=== PATIENT | female | born 1950 | race African-American/Black ===

== ENCOUNTER 2021-08-01 12:29 | Inpatient (IN) | payer MEDICARE ==
[2021-08-01] MEDS ORDERED: Ondansetron ODT 4 MG TAB PO PRN (14:25)
[2021-08-01] MEDS ORDERED: Nitroglycerin 0.4 MG TAB (25 Tab Bottle) SL PRN (14:25)
[2021-08-01] MEDS ORDERED: Ondansetron PF 4 MG/2 ML Vial IVP PRN (14:25)
[2021-08-01] MEDS ORDERED: Acetaminophen 650 MG Suppository PR PRN (14:25)
[2021-08-01] MEDS ORDERED: Acetaminophen 325 MG TAB PO PRN (14:25)
[2021-08-01 14:29] VITALS: BMI 25.0
[2021-08-01] MEDS ORDERED: Insulin Regular 300 UNITS/3 ML VIAL SC PRN ×2 (15:08)
[2021-08-01] MEDS ORDERED: Dextrose 5% in Water 1,000 ML IV PRN (15:08)
[2021-08-01] MEDS ORDERED: Dextrose 50% Abboject 50 ML SYRINGE SLOW IVP PRN (15:08)
[2021-08-02] MEDS ORDERED: Melatonin 3 MG TAB PO SCH (01:30)
[2021-08-02 04:33] LABS: #Basophils 0.1 10x3/uL (0.0-0.2); #Eosinphils 0.3 10x3/uL (0.0-0.5); #Monocytes 0.6 10x3/uL (0.0-1.1); #Neutrophils 2.3 10x3/uL (1.5-8.4); %Basophils 0.9 % (0.0-2.0); %Eosinophils 4.2 % (0.0-6.0); %Lymphocytes 51.1 % (18.0-47.0); %Monocytes 8.8 % (0.0-10.0); %Neutrophils 34.7 % (40.0-75.0); Hemoglobin 10.8 g/dL (12.0-15.5); Mean Corpuscular HGB CONC 34.1 g/dL (32.0-36.0); Mean Corpuscular Hemoglobin 30.7 pg (27.0-33.0); Mean Corpuscular Volume 90.1 fl (81.6-98.3); Platelet Count 252 10x3/uL (150-450); RBC Distribution Width 13.3 % (11.5-14.5); Red Blood Cell (RBC) Count 3.52 10x6/uL (3.90-5.03); White Blood Cell (WBC) Count 6.7 10x3/uL (3.5-10.5)
[2021-08-02 04:45] LABS: Anion Gap 13 mmol/L (10-20); BUN (Urea Nitrogen) 20 mg/dL (9.8-20.1); Calc. Creatinine Clearance 63 mL/min (70-130); Calcium 9.4 mg/dL (7.8-10.44); Carbon Dioxide 24 mmol/L (23-31); Cardiac Risk 3.9 (Less than 4.5); Chloride 107 mmol/L (98-107); Cholesterol 166 mg/dl (< 200 Desired); Glucose 104 mg/dL (83-110); HDL Cholesterol 43 mg/dL (>60 Neg Risk); LDL Cholesterol, Calculated 103 mg/dL; Sodium 140 mmol/L (136-145); Triglycerides 98 mg/dL (Less than 150)
[2021-08-02 05:33] LABS: Band 2 % (5-11); Lymphocytes 51 % (21-51); Monocytes 10 % (0-10)
[2021-08-02 05:34] LABS: Neutrophil 37 % (42-75); Platelet Morphology Comment Appears Adequate
[2021-08-02 05:35] LABS: RBC Morphology Normal
[2021-08-02 05:40] LABS: Reflex for Review?? YES
[2021-08-02] MEDS: NIFEdipine XL 30 MG TAB PO SCH (08:22)
[2021-08-02] MEDS: Atorvastatin Calcium 40 MG TAB PO SCH (08:22)
[2021-08-02] MEDS: Glimepiride 4 MG TAB PO SCH (08:22)
[2021-08-02] MEDS: Aspirin Chewable 81 MG TAB PO SCH (08:22)
[2021-08-02] MEDS: Clopidogrel Bisulfate 75 MG TAB PO SCH (08:22)
[2021-08-02] MEDS ORDERED: Metoprolol Tartrate 25 MG TAB PO SCH (15:30)
[2021-08-02] MEDS: Metoprolol Tartrate 25 MG TAB PO SCH (21:24)
[2021-08-02] MEDS: Enoxaparin Sodium 60 MG/0.6 ML SYRINGE SC SCH (21:27)
[2021-08-02] MEDS: Melatonin 3 MG TAB PO PRN (22:49)
[2021-08-03 04:04] LABS: #Basophils 0.1 10x3/uL (0.0-0.2); #Eosinphils 0.3 10x3/uL (0.0-0.5); #Monocytes 0.5 10x3/uL (0.0-1.1); #Neutrophils 2.7 10x3/uL (1.5-8.4); %Eosinophils 4.1 % (0.0-6.0); %Lymphocytes 47.3 % (18.0-47.0); %Monocytes 7.5 % (0.0-10.0); Hemoglobin 10.9 g/dL (12.0-15.5); Mean Corpuscular HGB CONC 34.3 g/dL (32.0-36.0); Mean Corpuscular Hemoglobin 30.7 pg (27.0-33.0); Mean Corpuscular Volume 89.6 fl (81.6-98.3); Platelet Count 240 10x3/uL (150-450); RBC Distribution Width 13.2 % (11.5-14.5); Red Blood Cell (RBC) Count 3.55 10x6/uL (3.90-5.03); White Blood Cell (WBC) Count 6.8 10x3/uL (3.5-10.5)
[2021-08-03 04:28] LABS: Anion Gap 10 mmol/L (10-20); BUN (Urea Nitrogen) 19 mg/dL (9.8-20.1); Calc. Creatinine Clearance 67 mL/min (70-130); Calcium 9.1 mg/dL (7.8-10.44); Carbon Dioxide 27 mmol/L (23-31); Chloride 106 mmol/L (98-107); Glucose 176 mg/dL (83-110); Potassium 3.8 mmol/L (3.5-5.1); Sodium 139 mmol/L (136-145)
[2021-08-03] MEDS: Atorvastatin Calcium 40 MG TAB PO SCH (08:24)
[2021-08-03] MEDS: NIFEdipine XL 30 MG TAB PO SCH (08:24)
[2021-08-03] MEDS: Metoprolol Tartrate 25 MG TAB PO SCH ×2 (08:24→20:51)
[2021-08-03] MEDS: Glimepiride 4 MG TAB PO SCH (08:25)
[2021-08-03] MEDS: Clopidogrel Bisulfate 75 MG TAB PO SCH (08:25)
[2021-08-03] MEDS: Enoxaparin Sodium 60 MG/0.6 ML SYRINGE SC SCH ×3 (08:25→23:00)
[2021-08-03] MEDS: Aspirin Chewable 81 MG TAB PO SCH (08:25)
[2021-08-03] MEDS ORDERED: Communication Order-Pharmacy FS SCH (17:45)
[2021-08-03] MEDS ORDERED: Diazepam 5 MG TAB PO SCH (17:45)
[2021-08-03] MEDS: Melatonin 3 MG TAB PO PRN (22:47)
[2021-08-04 04:08] LABS: #Basophils 0.1 10x3/uL (0.0-0.2); #Eosinphils 0.3 10x3/uL (0.0-0.5); #Monocytes 0.6 10x3/uL (0.0-1.1); #Neutrophils 4.4 10x3/uL (1.5-8.4); %Basophils 0.9 % (0.0-2.0); %Eosinophils 3.4 % (0.0-6.0); %Lymphocytes 36.3 % (18.0-47.0); %Monocytes 7.2 % (0.0-10.0); %Neutrophils 51.8 % (40.0-75.0); Hemoglobin 11.1 g/dL (12.0-15.5); Mean Corpuscular HGB CONC 34.7 g/dL (32.0-36.0); Mean Corpuscular Hemoglobin 30.8 pg (27.0-33.0); Mean Corpuscular Volume 88.9 fl (81.6-98.3); Platelet Count 247 10x3/uL (150-450); White Blood Cell (WBC) Count 8.6 10x3/uL (3.5-10.5)
[2021-08-04 04:28] LABS: Anion Gap 11 mmol/L (10-20); BUN (Urea Nitrogen) 18 mg/dL (9.8-20.1); Calc. Creatinine Clearance 70 mL/min (70-130); Calcium 9.6 mg/dL (7.8-10.44); Carbon Dioxide 26 mmol/L (23-31); Chloride 105 mmol/L (98-107); Glucose 119 mg/dL (83-110); Sodium 138 mmol/L (136-145)
[2021-08-04] MEDS: Metoprolol Tartrate 25 MG TAB PO SCH ×2 (06:14→21:02)
[2021-08-04] MEDS: NIFEdipine XL 30 MG TAB PO SCH (06:15)
[2021-08-04] MEDS: Aspirin Chewable 81 MG TAB PO SCH (06:16)
[2021-08-04] MEDS ORDERED: Nitroglycerin 50 MG/250 ML BOT 0 ML ONE (11:36)
[2021-08-04] MEDS ORDERED: Heparin 10,000 UNITS/ 10 ML VIAL ONE (11:36)
[2021-08-04] MEDS ORDERED: Adenosine 6 MG/2 ML VIAL ONE (11:37)
[2021-08-04] MEDS ORDERED: Sodium Chloride 0.9% 1,000 ML ONE (11:37)
[2021-08-04] MEDS ORDERED: Lidocaine 1% (PF) 30 ML VIAL ONE (11:39)
[2021-08-04] MEDS ORDERED: Fentanyl 100 MCG/2 ML VIAL ONE (11:52)
[2021-08-04] MEDS ORDERED: Midazolam HCl 2 mg/2 ml Vial ONE (11:53)
[2021-08-04] MEDS: Atorvastatin Calcium 40 MG TAB PO SCH (15:31)
[2021-08-04] MEDS: Clopidogrel Bisulfate 75 MG TAB PO SCH (15:32)
[2021-08-04] MEDS: Melatonin 3 MG TAB PO PRN (21:13)
[2021-08-05 04:37] LABS: #Basophils 0.1 10x3/uL (0.0-0.2); #Eosinphils 0.3 10x3/uL (0.0-0.5); #Monocytes 0.6 10x3/uL (0.0-1.1); %Basophils 0.7 % (0.0-2.0); %Eosinophils 3.6 % (0.0-6.0); %Lymphocytes 40.1 % (18.0-47.0); %Monocytes 7.1 % (0.0-10.0); %Neutrophils 48.3 % (40.0-75.0); Hemoglobin 11.1 g/dL (12.0-15.5); Mean Corpuscular HGB CONC 33.9 g/dL (32.0-36.0); Mean Corpuscular Hemoglobin 30.7 pg (27.0-33.0); Mean Corpuscular Volume 90.6 fl (81.6-98.3); Mean Platelet Volume 8.8 fl (7.4-10.4); Platelet Count 235 10x3/uL (150-450); RBC Distribution Width 12.9 % (11.5-14.5); Red Blood Cell (RBC) Count 3.61 10x6/uL (3.90-5.03); White Blood Cell (WBC) Count 8.3 10x3/uL (3.5-10.5)
[2021-08-05 04:51] LABS: Anion Gap 13 mmol/L (10-20); BUN (Urea Nitrogen) 13 mg/dL (9.8-20.1); Calc. Creatinine Clearance 66 mL/min (70-130); Calcium 9.2 mg/dL (7.8-10.44); Carbon Dioxide 26 mmol/L (23-31); Chloride 107 mmol/L (98-107); Glucose 93 mg/dL (83-110); Potassium 4.6 mmol/L (3.5-5.1); Sodium 141 mmol/L (136-145)
[2021-08-05] MEDS: Glimepiride 4 MG TAB PO SCH (08:06)
[2021-08-05] MEDS: Metoprolol Tartrate 25 MG TAB PO SCH (08:24)
[2021-08-05] MEDS: Clopidogrel Bisulfate 75 MG TAB PO SCH (08:25)
[2021-08-05] MEDS: Aspirin Chewable 81 MG TAB PO SCH (08:25)
[2021-08-05] MEDS: Atorvastatin Calcium 40 MG TAB PO SCH (08:25)
[2021-08-05] MEDS: NIFEdipine XL 30 MG TAB PO SCH (10:18)
[2021-08-05] MEDS ORDERED: Sodium Chloride 0.9% 500 ML IV SCH (13:30)
[2021-08-05 16:18] VITALS: BP 120/42; TEMP 98.2
[2021-08-05] MEDS ORDERED: Rosuvastatin 20 MG TAB PO SCH (21:00)
== END 2021-08-05 16:00 | disposition short-term general hospital (02) | DRG 287 ==
LOC: CSHTELE 13:42 → OBSVTOIN 08-02 15:34
PROVIDERS: ADMIT Family Medicine; ATTEND Family Medicine
PROC: 4A023N7 Measurement of Cardiac Sampling and Pressure, Left Heart, Percutaneous Approach (ICD-10-PCS; principal; 2021-08-04)
PROC: B2111ZZ Fluoroscopy of Multiple Coronary Arteries using Low Osmolar Contrast (ICD-10-PCS; 2021-08-04)
PROC: B2151ZZ Fluoroscopy of Left Heart using Low Osmolar Contrast (ICD-10-PCS; 2021-08-04)
DX: I25.110 Atherosclerotic heart disease of native coronary artery with unstable angina pectoris (principal); I50.30 Unspecified diastolic (congestive) heart failure; E78.5 Hyperlipidemia, unspecified; E11.9 Type 2 diabetes mellitus without complications; I11.0 Hypertensive heart disease with heart failure; Z86.73 Personal history of transient ischemic attack (TIA), and cerebral infarction without residual deficits; Z79.84 Long term (current) use of oral hypoglycemic drugs; Z79.02 Long term (current) use of antithrombotics/antiplatelets
CPT/HCPCS: 36415; 36416; 80048; 80061; 85025; 85060; 93005; 93010; 93306; 93459; 94760; 99152; 99153; C1760; C1776; G0378; J0153; J1644; J1650; J2001; J2250; J3010; J7050

== ENCOUNTER 2023-01-25 13:41 | Observation (INO) | payer MEDICARE ==
[2023-01-25 17:35] VITALS: BMI 23.7
[2023-01-25] MEDS ORDERED: Glucagon 1 MG/ML KIT IM PRN (19:13)
[2023-01-25] MEDS ORDERED: Acetaminophen 325 MG TAB PO PRN (19:13)
[2023-01-25] MEDS ORDERED: Ondansetron PF 4 MG/2 ML Vial IVP PRN (19:13)
[2023-01-25] MEDS ORDERED: Calcium Carbonate 500 MG ChewTAB PO PRN (19:13)
[2023-01-25] MEDS ORDERED: Zolpidem Tartrate 5 MG TAB PO PRN (19:13)
[2023-01-25] MEDS ORDERED: Dextrose 50% Abboject 50 ML SYRINGE SLOW IVP PRN (19:13)
[2023-01-25] MEDS ORDERED: Senokot S 8.6-50 MG TAB PO PRN (19:13)
[2023-01-25] MEDS ORDERED: Guaifenesin DM 100-10/5 ML UDCUP PO PRN (19:13)
[2023-01-25] MEDS ORDERED: Dextrose 5% in Water 1,000 ML IV PRN (19:13)
[2023-01-25] MEDS ORDERED: Nitroglycerin 0.4 MG TAB (25 Tab Bottle) SL PRN (19:16)
[2023-01-25] MEDS ORDERED: Amlodipine 5 MG TAB PO SCH (20:00)
[2023-01-25 20:10] LABS: Troponin I Less than 0.010 ng/mL (< 0.028)
[2023-01-25] MEDS ORDERED: Metoprolol Tartrate 25 MG TAB PO SCH (21:00)
[2023-01-26 04:25] LABS: Anion Gap 11 mmol/L (10-20); BUN (Urea Nitrogen) 14 mg/dL (9.8-20.1); Calc. Creatinine Clearance 55 mL/min (70-130); Carbon Dioxide 26 mmol/L (23-31); Chloride 108 mmol/L (98-107); Estimated GFR 68; Glucose 115 mg/dL (83-110); Potassium 4.1 mmol/L (3.5-5.1); Sodium 141 mmol/L (136-145)
[2023-01-26] MEDS ORDERED: Glimepiride 4 MG TAB PO SCH (08:00)
[2023-01-26] MEDS ORDERED: HumaLOG 300 UNITS/3 ML VIAL SC PRN (08:46)
[2023-01-26] MEDS ORDERED: Aspirin 81 mg Enteric Coated Tablet PO SCH (09:00)
[2023-01-26] MEDS ORDERED: Metoprolol Tartrate 25 MG TAB PO SCH (09:00)
[2023-01-26] MEDS ORDERED: Atorvastatin Calcium 40 MG TAB PO SCH (09:00)
[2023-01-26] MEDS ORDERED: Amlodipine 5 MG TAB PO SCH (09:00)
[2023-01-26 16:47] VITALS: BP 144/67; TEMP 97.6
== END 2023-01-26 16:00 | disposition home or self-care (01) ==
LOC: CSHTELE 16:32
PROVIDERS: ADMIT Internal Medicine; ATTEND Internal Medicine
DX: R00.2 Palpitations (principal); R06.09 Other forms of dyspnea; R07.9 Chest pain, unspecified; I16.0 Hypertensive urgency; I10 Essential (primary) hypertension; R42 Dizziness and giddiness; I25.10 Atherosclerotic heart disease of native coronary artery without angina pectoris; E78.5 Hyperlipidemia, unspecified; E11.9 Type 2 diabetes mellitus without complications; Z79.84 Long term (current) use of oral hypoglycemic drugs; Z79.899 Other long term (current) drug therapy; Z79.82 Long term (current) use of aspirin; Z86.73 Personal history of transient ischemic attack (TIA), and cerebral infarction without residual deficits; Z90.49 Acquired absence of other specified parts of digestive tract; Z95.1 Presence of aortocoronary bypass graft
CPT/HCPCS: 36415; 36416; 80048; 83735; 84443; 85379; J1650

== ENCOUNTER 2023-06-29 10:04 | Observation (INO) | payer MEDICARE ==
[~2023-06-29 10:04] MED LIST: Iopamidol 300 61% 100 ML VIAL FS ONE
[2023-06-29] MEDS ORDERED: Aspirin Chewable 81 MG TAB ONE (11:08)
[2023-06-29] MEDS ORDERED: Nitroglycerin 2% Ointment 1 INCH/1 GM Packet ONE (11:08)
[2023-06-29 11:36] LABS: ALT (SGPT) 29 U/L (8-55); AST (SGOT) 20 U/L (5-34); Albumin 4.4 g/dL (3.4-4.8); Alkaline Phosphatase 70 U/L (40-110); Anion Gap 10 mmol/L (10-20); BUN (Urea Nitrogen) 12 mg/dL (9.8-20.1); Calc. Creatinine Clearance 0 mL/min (70-130); Calcium 9.6 mg/dL (7.8-10.44); Carbon Dioxide 25 mmol/L (23-31); Chloride 106 mmol/L (98-107); Estimated GFR 66; Globulin 3.6 g/dL (2.4-3.5); Glucose 108 mg/dL (83-110); Magnesium 1.9 mg/dL (1.6-2.6); Potassium 4.4 mmol/L (3.5-5.1); Sodium 137 mmol/L (136-145)
[2023-06-29 11:40] LABS: Troponin I Less than 0.010 ng/mL (< 0.028)
[2023-06-29 11:49] LABS: #Basophils 0.1 10x3/uL (0.0-0.2); #Eosinphils 0.2 10x3/uL (0.0-0.5); #Monocytes 0.4 10x3/uL (0.0-1.1); #Neutrophils 4.6 10x3/uL (1.5-8.4); %Eosinophils 3.1 % (0.0-6.0); %Lymphocytes 31.4 % (18.0-47.0); %Monocytes 4.6 % (0.0-10.0); %Neutrophils 59.5 % (40.0-75.0); Hematocrit 38.7 % (34.9-44.5); Hemoglobin 13.7 g/dL (12.0-15.5); Mean Corpuscular HGB CONC 35.4 g/dL (32.0-36.0); Mean Corpuscular Hemoglobin 31.4 pg (27.0-33.0); Mean Corpuscular Volume 88.6 fl (81.6-98.3); Platelet Count 242 10x3/uL (150-450); RBC Distribution Width 12.6 % (11.5-14.5); Red Blood Cell (RBC) Count 4.37 10x6/uL (3.90-5.03); White Blood Cell (WBC) Count 7.8 10x3/uL (3.5-10.5)
[2023-06-29] MEDS ORDERED: Acetaminophen 325 MG TAB PO PRN (12:49)
[2023-06-29] MEDS ORDERED: Glucagon 1 MG/ML KIT IM PRN (12:54)
[2023-06-29] MEDS ORDERED: Dextrose 50% Abboject 50 ML SYRINGE SLOW IVP PRN (12:54)
[2023-06-29] MEDS ORDERED: Dextrose 5% in Water 1,000 ML IV PRN (12:54)
[2023-06-29] MEDS ORDERED: Insulin Regular 300 UNITS/3 ML VIAL SC PRN (12:54)
[2023-06-29] MEDS ORDERED: fentaNYL 50 mcg/mL 1 mL Vial ONE (13:51)
[2023-06-29] MEDS ORDERED: Heparin 10,000 UNITS/ 10 ML VIAL ONE (13:51)
[2023-06-29] MEDS ORDERED: Lidocaine 1% (PF) 30 ML VIAL ONE (13:51)
[2023-06-29] MEDS ORDERED: Nitroglycerin 50 MG/250 ML BOT 0 ML ONE (13:51)
[2023-06-29] MEDS ORDERED: Midazolam HCl 2 mg/2 ml Vial ONE (13:51)
[2023-06-29 18:30] VITALS: BMI 24.2
[2023-06-29] MEDS: Sodium Chloride 0.9% 1,000 ML IV SCH (18:37)
[2023-06-29] MEDS ORDERED: Famotidine 20 MG TAB PO SCH (21:00)
[2023-06-30 04:24] LABS: Cardiac Risk 4.9 (Less than 4.5)
[2023-06-30] MEDS: Sodium Chloride 0.9% 1,000 ML IV SCH ×2 (07:30→10:19)
[2023-06-30] MEDS ORDERED: Aspirin Chewable 81 MG TAB PO SCH (09:00)
[2023-06-30] MEDS ORDERED: Isosorbide Mononitrate 30 MG ER.TAB PO SCH (09:00)
[2023-06-30] MEDS ORDERED: Valsartan 80 MG TAB PO SCH (09:00)
[2023-06-30 16:17] VITALS: BP 123/63; TEMP 98.1
== END 2023-06-30 16:45 | disposition home or self-care (01) ==
LOC: CSHERS 10:04 → CSHERHOLD 12:47 → CSHTELE 13:39
PROVIDERS: ADMIT Internal Medicine; ATTEND Nurse Practitioner Acute Care
PROC: 4A023N7 Measurement of Cardiac Sampling and Pressure, Left Heart, Percutaneous Approach (ICD-10-PCS; principal; 2023-06-29)
PROC: B300ZZZ Plain Radiography of Thoracic Aorta (ICD-10-PCS; 2023-06-29)
PROC: B205YZZ Plain Radiography of Left Heart using Other Contrast (ICD-10-PCS; 2023-06-29)
DX: I25.110 Atherosclerotic heart disease of native coronary artery with unstable angina pectoris (principal); E11.9 Type 2 diabetes mellitus without complications; E78.5 Hyperlipidemia, unspecified; I10 Essential (primary) hypertension; Z95.1 Presence of aortocoronary bypass graft; Z90.49 Acquired absence of other specified parts of digestive tract; Z79.02 Long term (current) use of antithrombotics/antiplatelets; Z79.84 Long term (current) use of oral hypoglycemic drugs; Z79.82 Long term (current) use of aspirin; Z79.85 Long-term (current) use of injectable non-insulin antidiabetic drugs; Z86.73 Personal history of transient ischemic attack (TIA), and cerebral infarction without residual deficits; Z79.899 Other long term (current) drug therapy
CPT/HCPCS: 71045; 80053; 80061; 82962 ×2; 83735; 84484; 85025; 93005; 93306; 93459; 94760; C1760 ×2; C1769; G0378 ×3; 36415; 36416; 99152; 99153; J1644; J1815; J2001; J2250; J3010; J7050; Q9967

== ENCOUNTER 2023-07-23 14:18 | Inpatient (IN) | payer MEDICARE ==
[2023-07-23 15:58] LABS: #Basophils 0.1 10x3/uL (0.0-0.2); #Eosinphils 0.2 10x3/uL (0.0-0.5); #Monocytes 0.6 10x3/uL (0.0-1.1); #Neutrophils 5.8 10x3/uL (1.5-8.4); %Eosinophils 2.6 % (0.0-6.0); %Lymphocytes 20.7 % (18.0-47.0); %Monocytes 6.7 % (0.0-10.0); %Neutrophils 68.6 % (40.0-75.0); Hematocrit 36.4 % (34.9-44.5); Hemoglobin 12.2 g/dL (12.0-15.5); Mean Corpuscular HGB CONC 33.5 g/dL (32.0-36.0); Mean Corpuscular Volume 89.7 fl (81.6-98.3); Mean Platelet Volume 9.4 fl (7.4-10.4); Platelet Count 260 10x3/uL (150-450); RBC Distribution Width 12.9 % (11.5-14.5); Red Blood Cell (RBC) Count 4.06 10x6/uL (3.90-5.03); White Blood Cell (WBC) Count 8.4 10x3/uL (3.5-10.5)
[2023-07-23 16:04] LABS: ALT (SGPT) 22 U/L (8-55); AST (SGOT) 19 U/L (5-34); Alkaline Phosphatase 74 U/L (40-110); Anion Gap 10 mmol/L (10-20); BUN (Urea Nitrogen) 15 mg/dL (9.8-20.1); Bilirubin, Total 0.8 mg/dL (0.2-1.2); Calc. Creatinine Clearance 0 mL/min (70-130); Carbon Dioxide 25 mmol/L (23-31); Chloride 108 mmol/L (98-107); Estimated GFR 52; Globulin 2.8 g/dL (2.4-3.5); Glucose 155 mg/dL (83-110); Potassium 5.2 mmol/L (3.5-5.1); Protein, Total 6.8 g/dL (5.8-8.1); Sodium 138 mmol/L (136-145)
[2023-07-23 16:11] LABS: Troponin I Less than 0.010 ng/mL (< 0.028)
[2023-07-23] MEDS ORDERED: Dextrose 50% Abboject 50 ML SYRINGE SLOW IVP PRN (17:50)
[2023-07-23] MEDS ORDERED: Dextrose 5% in Water 1,000 ML IV PRN (17:50)
[2023-07-23] MEDS ORDERED: Glucagon 1 MG/ML KIT IM PRN (17:50)
[2023-07-23 18:45] LABS: Troponin I Less than 0.010 ng/mL (< 0.028)
[2023-07-23] MEDS: Metoprolol Tartrate 25 MG TAB PO SCH (20:58)
[2023-07-23] MEDS: Famotidine 20 MG TAB PO SCH (20:59)
[2023-07-23] MEDS: Acetaminophen 325 MG TAB PO PRN (20:59)
[2023-07-23] MEDS: Insulin Regular 300 UNITS/3 ML VIAL SC PRN (21:15)
[2023-07-23 21:36] LABS: Troponin I Less than 0.010 ng/mL (< 0.028)
[2023-07-23] MEDS: traZODone HCl 50 MG TAB PO SCH (22:03)
[2023-07-24 05:46] LABS: Anion Gap 8 mmol/L (10-20); BUN (Urea Nitrogen) 15 mg/dL (9.8-20.1); Calc. Creatinine Clearance 0 mL/min (70-130); Calcium 8.8 mg/dL (7.8-10.44); Carbon Dioxide 24 mmol/L (23-31); Chloride 112 mmol/L (98-107); Estimated GFR 69; Glucose 99 mg/dL (83-110); Potassium 4.3 mmol/L (3.5-5.1); Sodium 140 mmol/L (136-145)
[2023-07-24 05:50] VITALS: BMI 24.2
[2023-07-24 10:58] LABS: Magnesium 1.7 mg/dL (1.6-2.6)
[2023-07-24] MEDS: Ranolazine ER 500 MG TAB PO SCH ×2 (11:12→21:29)
[2023-07-24] MEDS: Aspirin Chewable 81 MG TAB PO SCH (11:12)
[2023-07-24] MEDS: Isosorbide Mononitrate 30 MG ER.TAB PO SCH (11:13)
[2023-07-24] MEDS: Clopidogrel Bisulfate 75 MG TAB PO SCH (11:16)
[2023-07-24 11:41] LABS: Hemoglobin A1c 6.5 % (4.0-6.0)
[2023-07-24] MEDS: Magnesium 2 GM/50 ML(in water) 2 GM in Premix 1 BAG IVPB SCH (14:25)
[2023-07-24] MEDS: traZODone HCl 50 MG TAB PO SCH (21:29)
[2023-07-25 06:05] LABS: Anion Gap 10 mmol/L (10-20); BUN (Urea Nitrogen) 16 mg/dL (9.8-20.1); Calc. Creatinine Clearance 48 mL/min (70-130); Calcium 8.6 mg/dL (7.8-10.44); Carbon Dioxide 24 mmol/L (23-31); Chloride 107 mmol/L (98-107); Estimated GFR 57; Glucose 138 mg/dL (83-110); Potassium 4.2 mmol/L (3.5-5.1); Sodium 137 mmol/L (136-145)
[2023-07-25] MEDS: Metoprolol Tartrate 25 MG TAB PO SCH (08:59)
[2023-07-25] MEDS ORDERED: Famotidine 20 MG TAB PO SCH (21:00)
[2023-07-25] MEDS: Ranolazine ER 500 MG TAB PO SCH (21:06)
[2023-07-26 04:59] LABS: #Basophils 0.1 10x3/uL (0.0-0.2); #Eosinphils 0.4 10x3/uL (0.0-0.5); #Monocytes 0.6 10x3/uL (0.0-1.1); #Neutrophils 3.1 10x3/uL (1.5-8.4); %Basophils 1.2 % (0.0-2.0); %Eosinophils 5.8 % (0.0-6.0); %Lymphocytes 35.6 % (18.0-47.0); %Monocytes 8.6 % (0.0-10.0); %Neutrophils 48.6 % (40.0-75.0); Hematocrit 33.2 % (34.9-44.5); Hemoglobin 11.7 g/dL (12.0-15.5); Mean Corpuscular HGB CONC 35.2 g/dL (32.0-36.0); Mean Corpuscular Volume 88.1 fl (81.6-98.3); Mean Platelet Volume 9.9 fl (7.4-10.4); Platelet Count 239 10x3/uL (150-450); RBC Distribution Width 12.6 % (11.5-14.5); Red Blood Cell (RBC) Count 3.77 10x6/uL (3.90-5.03); White Blood Cell (WBC) Count 6.4 10x3/uL (3.5-10.5)
[2023-07-26 05:05] LABS: Anion Gap 11 mmol/L (10-20); BUN (Urea Nitrogen) 16 mg/dL (9.8-20.1); Calc. Creatinine Clearance 46 mL/min (70-130); Calcium 8.8 mg/dL (7.8-10.44); Carbon Dioxide 22 mmol/L (23-31); Chloride 108 mmol/L (98-107); Estimated GFR 54; Glucose 123 mg/dL (83-110); Potassium 4.2 mmol/L (3.5-5.1); Sodium 137 mmol/L (136-145)
[2023-07-27] MEDS: Ondansetron PF 4 MG/2 ML Vial IVP PRN (08:33)
[2023-07-27] MEDS: Ondansetron ODT 4 MG TAB PO SCH (19:40)
[2023-07-27 20:11] VITALS: BP 112/51; TEMP 97.6
[2023-07-28] MEDS ORDERED: Valsartan 80 MG TAB PO SCH (09:00)
== END 2023-07-27 21:30 | disposition home or self-care (01) | DRG 392 ==
LOC: CSHERS 14:18 → CSHTELE 17:24
PROVIDERS: ADMIT Internal Medicine; ATTEND Internal Medicine
DX: K21.9 Gastro-esophageal reflux disease without esophagitis (principal); I25.10 Atherosclerotic heart disease of native coronary artery without angina pectoris; I10 Essential (primary) hypertension; E11.9 Type 2 diabetes mellitus without complications; E78.5 Hyperlipidemia, unspecified; I95.9 Hypotension, unspecified; R00.1 Bradycardia, unspecified; Z95.1 Presence of aortocoronary bypass graft; Z79.02 Long term (current) use of antithrombotics/antiplatelets; Z79.84 Long term (current) use of oral hypoglycemic drugs; Z79.82 Long term (current) use of aspirin; Z86.73 Personal history of transient ischemic attack (TIA), and cerebral infarction without residual deficits; Z90.49 Acquired absence of other specified parts of digestive tract
CPT/HCPCS: 36415; 36416; 71045; 80048; 80053; 83036; 83690; 83735; 83880; 84484; 85025; 93005; 94760; J1815; J2405; J3475; Q0162